=== PATIENT | female | born 1995 | race Caucasian/White ===

== ENCOUNTER 2023-02-07 11:34 | Outpatient (CLI) | payer OTHER | END 2023-02-07 13:02 | disposition home or self-care (01) | LOC: NST 11:34 | PROVIDERS: ATTEND Obstetrics & Gynecology | DX: Z34.83 Encounter for supervision of other normal pregnancy, third trimester (principal) ==

== ENCOUNTER 2025-03-12 07:57 | Emergency (ER) | payer OTHER ==
[~2025-03-12] VITALS: Ht 149.9 cm; Wt 63.5 kg
[2025-03-12] MEDS ORDERED: ACETAMINOPHEN 500 MG GEL..CAP PO ONE ×2 (08:43→08:45)
[2025-03-12] MEDS ORDERED: GUAIFENESIN 200 MG/10 ML BLIST.PACK PO ONE ×2 (08:43→08:45)
[2025-03-12] MEDS ORDERED: BENZONATATE 100 MG CAPSULE PO ONE (08:45)
[2025-03-12 09:54] LABS: COVID-19 AG NEGATIVE (NEGATIVE)
[2025-03-12 09:55] LABS: INFLUENZA A AG NEGATIVE (NEGATIVE)
[2025-03-12 09:58] LABS: CALCIUM 9.2 mg/dL (8.5-10.1); CREATININE SERUM 0.56 mg/dL (0.55-1.02); GFR 127.99; POTASSIUM 4.11 mEq/L (3.5-5.1)
[2025-03-12 10:21] LABS: HEMOGLOBIN 12.6 g/dL (11.2-15.7); RED BLOOD COUNT 4.62 M/uL (3.93-5.22)
[2025-03-12 10:22] LABS: BASO % 0.6 % (0.1-1.2); EOS % 3.5 % (0.7-7.0); HEMATOCRIT 37.6 % (34.1-44.9); LYMPH % 28.5 % (19.3-53.1); MEAN CORPUSCULAR HEMOGLOBIN 27.3 pg (25.6-32.2); MONO % 7.1 % (4.7-12.5); NEUT % 59.9 % (34.0-71.1)
[2025-03-12 10:23] LABS: EOS # 0.25 (0.04-0.54); LYMPH # 2.06 (1.18-3.74); MONO # 0.51 (0.24-0.82); NEUT # 4.33 (1.56-6.13)
[2025-03-12 10:25] LABS: PLATELET COUNT 53 K/uL (163-369)
[2025-03-12] MEDS ORDERED: TUSSIN100 MG/51 PO (11:28)
[2025-03-12] MEDS ORDERED: ZYRTEC10 M3 PO (11:28)
[2025-03-12] MEDS ORDERED: BENZONATATE200 M1 PO (11:28)
[2025-03-12] MEDS ORDERED: AUGMENTIN XR 11 EACH PO (11:28)
[2025-03-12] MEDS ORDERED: CHLORASEPTIC M1 EAC1 MM (11:28)
== END 2025-03-12 12:55 | disposition home or self-care (01) ==
LOC: ER 08:49
PROVIDERS: General Practice
DX: J98.8 Other specified respiratory disorders (principal); R05.9 Cough, unspecified; R07.89 Other chest pain; Z20.822 Contact with and (suspected) exposure to COVID-19

== ENCOUNTER 2025-04-19 11:39 | Outpatient (CLI) | payer OTHER ==
[~2025-04-19 11:39] MED LIST: AUGMENTIN XR 11 EACH PO; BENZONATATE200 M1 PO; CHLORASEPTIC M1 EAC1 MM; TUSSIN100 MG/51 PO; ZYRTEC10 M3 PO
== END 2025-04-19 12:00 | disposition home or self-care (01) ==
LOC: RAD 11:39
PROVIDERS: ATTEND Family Medicine
DX: M25.542 Pain in joints of left hand (principal)